=== PATIENT | male | born 1965 | race Caucasian/White ===

== ENCOUNTER 2017-11-28 00:17 | Inpatient (IN) ==
[2017-11-28 00:49] LABS: Basophils % 0.7 %; Eosinophils # 0.2 K/mcL (0.0-0.6); Eosinophils % 3.5 %; Hematocrit 43.2 % (37.5-50.1); Hemoglobin 14.8 g/dL (12.9-16.9); Immature Granulocytes % 0.2 % (0-4); Lymphocytes # 1.6 K/mcL (0.6-4.6); Lymphocytes % 37.3 %; Mean Corpuscular HGB Conc 34.3 g/dL (31.6-35.5); Mean Corpuscular Hemoglobin 31.1 pg (28.0-33.3); Mean Corpuscular Volume 90.8 fL (83.0-100.0); Mean Platelet Volume 8.9 fL (9.4-12.4); Monocytes # 0.3 K/mcL (0.0-1.3); Monocytes % 6.6 %; Neutrophils # 2.2 K/mcL (1.6-8.9); Platelet Count 192 K/mcL (140-400); Red Blood Count 4.76 M/mcL (4.19-5.50); Red Cell Distribution Width 12.6 % (11.5-14.5); Segmented Neutrophils % 51.7 %
[2017-11-28 01:01] LABS: Bilirubin,Urine Negative (Negative); Blood,Urine Negative (Negative); Clarity,Urine Clear (Clear); Color,Urine Yellow (Yellow); Glucose,Urine (UA) Normal (Normal); Ketones,Urine Negative (Negative); Leukocyte Esterase,Urine Negative (Negative); Nitrite,Urine Negative (Negative); Protein,Urine Negative (Neg-Trace); Specific Gravity,Urine 1.021 (1.010-1.025); Urobilinogen,Urine Normal (Normal)
[2017-11-28 01:09] LABS: Amphetamine Screen,Urine Negative ng/mL (Cutoff=1000); Barbiturate Screen,Urine Negative ng/mL (Cutoff=200); Benzodiazepines Screen,Urine Negative ng/mL (Cutoff=200); Cannabinoid Screen,Urine Negative ng/mL (Cutoff = 50); Cocaine Screen,Urine Positive ng/mL (Cutoff= 300); Opiate Screen,Urine Negative ng/mL (Cutoff=300); Phencyclidine Screen,Urine Negative ng/mL (Cutoff=25)
--- NOTE | 2017-11-28 01:11 | Emergency Department Note ---
Overdose - [facility] Narrative Medical decision making narrative: 52-year-old male presents due to intentional ingestion with intent to harm. Case discussed with poison control. He was observed here without decompensation. Psychiatry evaluated the patient and accepted them to their service. - Lab Data Lab results reviewed: Yes I reviewed the patient's lab results. Result diagrams: 11/28/17 00:41 11/28/17 00:41 Lab Results 11/28/17 11/28/17 11/28/17 Range/Units 00:41 00:41 00:49 WBC 4.2 L (4.3-11.1) K/mcL RBC 4.76 (4.19-5.50) M/mcL Hgb 14.8 (12.9-16.9) g/dL Hct 43.2 (37.5-50.1) % MCV 90.8 (83.0-100.0) fL MCH 31.1 (28.0-33.3) pg MCHC 34.3 (31.6-35.5) g/dL RDW 12.6 (11.5-14.5) % Plt Count 192 (140-400) K/mcL MPV 8.9 L (9.4-12.4) fL Immature Gran % 0.2 (0-4) % Seg Neutrophils % 51.7 % Lymphocytes % 37.3 % Monocytes % 6.6 % Eosinophils % 3.5 % Basophils % 0.7 % Neutrophils # 2.2 (1.6-8.9) K/mcL Lymphocytes # 1.6 (0.6-4.6) K/mcL Monocytes # 0.3 (0.0-1.3) K/mcL Eosinophils # 0.2 (0.0-0.6) K/mcL Basophils # 0.0 (0.0-0.2) K/mcL Sodium 140 (136-145) mEq/L Potassium 3.4 L (3.5-5.1) mEq/L Chloride 108 H (98-107) mEq/L Carbon Dioxide 22 L (23-29) mEq/L BUN 15 (6-20) mg/dL Creatinine 0.92 (0.70-1.30) mg/dL Est GFR ( Amer) > 60 (> 60) Est GFR (Non-Af Amer) > 60 (> 60) BUN/Creatinine Ratio 16 (6-26) Glucose 113 H (70-105) mg/dL Calculated Osmolality 292 (280-300) Calcium 8.7 (8.6-10.3) mg/dL TSH 5.432 (0.340-5.600) mcIU/mL Urine Color Yellow (Yellow) Urine Clarity Clear (Clear) Urine pH 6.0 (5.0-8.0) pH Units Ur Specific [place] 1.021 (1.010-1.025) Urine Protein Negative (Neg-Trace) mg/dL Urine Glucose (UA) Normal (Normal) mg/dL Urine Ketones Negative (Negative) mg/dL Urine Blood Negative (Negative) Urine Nitrite Negative (Negative) Urine Bilirubin Negative (Negative) Urine Urobilinogen Normal (Normal) mg/dL Ur Leukocyte Esterase Negative (Negative) Salicylates < 2.5 L (15.0-30.0) mg/dL Urine Opiates Screen (Mnasnr=260) ng/mL Acetaminophen < 10 L (10-20) mcg/mL Ur Barbiturates Screen (Lpywkz=641) ng/mL Ur Phencyclidine Scrn (Cutoff=25) ng/mL Ur Amphetamines Screen (Vfmzpg=1031) ng/mL U Benzodiazepines Scrn (Aupkua=230) ng/mL Urine Cocaine Screen (Cutoff= 300) ng/mL U Marijuana (THC) Screen (Cutoff = 50) ng/mL Ur Drug Screen Interp Ethyl Alcohol 100 H (Less than 10) mg/dL 11/28/17 11/28/17 Range/Units 00:49 03:10 WBC (4.3-11.1) K/mcL RBC (4.19-5.50) M/mcL Hgb (12.9-16.9) g/dL Hct (37.5-50.1) % MCV (83.0-100.0) fL MCH (28.0-33.3) pg MCHC (31.6-35.5) g/dL RDW (11.5-14.5) % Plt Count (140-400) K/mcL MPV (9.4-12.4) fL Immature Gran % (0-4) % Seg Neutrophils % % Lymphocytes % % Monocytes % % Eosinophils % % Basophils % % Neutrophils # (1.6-8.9) K/mcL Lymphocytes # (0.6-4.6) K/mcL Monocytes # (0.0-1.3) K/mcL Eosinophils # (0.0-0.6) K/mcL Basophils # (0.0-0.2) K/mcL Sodium (136-145) mEq/L Potassium (3.5-5.1) mEq/L Chloride (98-107) mEq/L Carbon Dioxide (23-29) mEq/L BUN (6-20) mg/dL Creatinine (0.70-1.30) mg/dL Est GFR ( Amer) (> 60) Est GFR (Non-Af Amer) (> 60) BUN/Creatinine Ratio (6-26) Glucose (70-105) mg/dL Calculated Osmolality (280-300) Calcium (8.6-10.3) mg/dL TSH (0.340-5.600) mcIU/mL Urine Color (Yellow) Urine Clarity (Clear) Urine pH (5.0-8.0) pH Units Ur Specific [place] (1.010-1.025) Urine Protein (Neg-Trace) mg/dL Urine Glucose (UA) (Normal) mg/dL Urine Ketones (Negative) mg/dL Urine Blood (Negative) Urine Nitrite (Negative) Urine Bilirubin (Negative) Urine Urobilinogen (Normal) mg/dL Ur Leukocyte Esterase (Negative) Salicylates (15.0-30.0) mg/dL Urine Opiates Screen Negative (Zntuoc=065) ng/mL Acetaminophen (10-20) mcg/mL Ur Barbiturates Screen Negative (Hjcluh=157) ng/mL Ur Phencyclidine Scrn Negative (Cutoff=25) ng/mL Ur Amphetamines Screen Negative (Sklfwz=1270) ng/mL U Benzodiazepines Scrn Negative (Joxggn=123) ng/mL Urine Cocaine Screen Positive H (Cutoff= 300) ng/mL U Marijuana (THC) Screen Negative (Cutoff = 50) ng/mL Ur Drug Screen Interp See Below Ethyl Alcohol 53 H (Less than 10) mg/dL - EKG Data EKG attestation: Yes I reviewed and interpreted this EKG. EKG results narrative: EKG demonstrates sinus rhythm with rate of 86 bpm. Left axis deviation. Normal intervals. Normal heart progression. No gross ST elevations or depressions. No acute ischemic findings. Repeat EKG demonstrates sinus rhythm rate 84 beats or minute. Left axis deviation. Normal intervals. Normal R-wave progression. No gross ST elevations or depressions. No changes from prior EKG Overdose HPI - General Chief Complaint: ED Overdose Stated Complaint: Overdose Time Seen by Provider: 11/28/17 00:27 Source: patient Mode of arrival: private vehicle Limitations: no limitations Nursing Notes Reviewed: Yes Vital Signs Reviewed: Yes - History of Present Illness HPI Narrative: 52-year-old male history of anxiety on Seroquel presents to the ER due to intentional overdose. States around 11 PM he took 2025 mg Seroquel tablets. This was an attempt to end his life. He immediately demonstrate a remorse and drink vinegar trying to throw up. He did not have any emesis. He denies any coingestions. No prior history of self-injurious behavior. Upon arrival he has no complaints just demonstrating remorse and poor judgment. Reports significant life stressors currently. Pt Subjective Complaint: intentional overdose Onset (ago): hour(s) Time of Ingestion: 23:00 Intent: suicide attempt Treatments Prior to Arrival: none - Related Data Previous Rx's Medication Instructions Recorded HydrOXYzine Pamoate [Vistaril] 50 mg PO TID #30 capsule 04/29/16 Allergies Allergy/AdvReac Type Severity Reaction Status Date / Time No Known Allergies Allergy Verified 04/29/16 09:56 All systems ED: reviewed and negative except as stated. Psychiatric: Reports: anxiety, suicidal thoughts. Denies: depression, homicidal thoughts, auditory hallucinations, visual hallucinations Past Medical History - Past Medical History Attestation: Yes The following information was validated with the patient. Source: patient Medical history: Reports: hyperlipidemia Psychiatric history: Reports: anxiety - Social History Smoking Status: Never smoker Smokeless Tobacco Status: Yes Alcohol use: Reports: occasionally Drug use: Reports: cocaine, opiates Physical Exam - General Limitations: no limitations General appearance: alert, in no apparent distress - Head Head exam: atraumatic, normocephalic - Eye Eye exam: Present: normal appearance - ENT ENT exam: normal exam - Neck Neck exam: Present: normal inspection - Chest Chest inspection: Present: normal inspection, symmetric chest wall rise - Respiratory Respiratory exam: Present: normal lung sounds bilaterally - Cardiovascular Cardiovascular exam: Present: regular rate, normal rhythm, normal heart sounds - Abdominal Exam Abdominal exam: Present: soft, Non-Tender. Absent: tenderness - Extremities Exam Extremities exam: Present: normal inspection, full ROM - Expanded Upper Extremity Exam Shoulder exam: Present: normal inspection, full ROM Arm exam: Present: normal inspection, full ROM Elbow exam: Present: normal inspection, full ROM Forearm/Wrist exam: Present: normal inspection, full ROM Hand exam: Present: normal inspection, full ROM - Expanded Lower Extremity Exam Hip/Pelvis exam: Present: normal inspection, full ROM Upper leg exam: Present: normal inspection, full ROM Knee exam: Present: normal inspection, full ROM Lower leg exam: Present: normal inspection, full ROM Ankle exam: Present: normal inspection, full ROM Foot/toe exam: Present: normal inspection, full ROM Neurovascular/Tendon exam: Absent: motor deficit, sensory deficit - Neurological Exam Neurological exam: Present: alert, other (GCS 15. No focal deficits.) - Psychiatric Psychiatric exam: Present: depressed - Skin Skin exam: Present: warm, dry Course Course Narrative: Patient seen and examined. Plan to speak with poison control. Medical clearance and psychiatric evaluation. [place] slipped for suicide attempt. - Reevaluation(s) Reevaluation #1: Patient evaluated by psychiatry. Deemed him a candidate for inpatient management. - Consultations Consultation #1: I spoke with the poison control center concerning the patient's ingestion. They recommend a 4-6 hour observation timeframe. Vital Signs Temperature 97.5 F L 11/28/17 00:19 Pulse Rate 88 11/28/17 00:19 Respiratory Rate 16 11/28/17 00:19 Blood Pressure 150/88 11/28/17 00:19 O2 Sat by Pulse Oximetry 97 11/28/17 00:19 Temperature 97.5 F L 11/28/17 00:19 Pulse Rate 83 11/28/17 02:54 Respiratory Rate 14 11/28/17 02:54 Blood Pressure 102/73 11/28/17 02:54 O2 Sat by Pulse Oximetry 98 11/28/17 02:54 Oxygen Delivery Oxygen Delivery Room Air Disposition Clinical Impression: Suicide attempt, Alcohol use Drug ingestion Qualifiers: Encounter type: initial encounter Injury intent: intentional self-harm Qualified Code(s): T50.902A - Poisoning by unspecified drugs, medicaments and biological substances, intentional self-harm, initial encounter Disposition: Admitted As Inpatient Condition: Good
[2017-11-28 01:26] LABS: Acetaminophen < 10 mcg/mL (10-20); BUN/Creatinine Ratio 16 (6-26); Blood Urea Nitrogen 15 mg/dL (6-20); Calcium 8.7 mg/dL (8.6-10.3); Carbon Dioxide 22 mEq/L (23-29); Chloride 108 mEq/L (98-107); Ethanol 100 mg/dL (Less than 10); Glucose 113 mg/dL (70-105); Osmolality,Calculated 292 (280-300); Potassium 3.4 mEq/L (3.5-5.1); Salicylate < 2.5 mg/dL (15.0-30.0); Sodium 140 mEq/L (136-145); Thyroid Stimulating Hormone 5.432 mcIU/mL (0.340-5.600); eGFR For Non-African Americans > 60 (> 60)
[2017-11-28] MEDS ORDERED: *HR* Buprenorphine HCl 8 MG TAB.SUBL SL ONE (04:18)
--- NOTE | 2017-11-28 05:26 | Emergency Department Note ---
Disposition Clinical Impression: Suicide attempt, Alcohol use Drug ingestion Qualifiers: Encounter type: initial encounter Injury intent: intentional self-harm Qualified Code(s): T50.902A - Poisoning by unspecified drugs, medicaments and biological substances, intentional self-harm, initial encounter Disposition: Admitted As Inpatient Condition: Good General Adult HPI - General Chief complaint: ED Overdose Stated complaint: Overdose Time Seen by Provider: 11/28/17 00:27 Source: patient Mode of arrival: private vehicle Limitations: no limitations Nursing Notes Reviewed: Yes Vital Signs Reviewed: Yes - History of Present Illness Pain Scale: 0 - Related Data Home Medications Medication Instructions Recorded Confirmed Buprenorphine HCl/Naloxone HCl 1 each SL 11/28/17 [Suboxone 8 mg-2 mg Sl Film] Quetiapine Fumarate [Seroquel] 25 mg PO HS 11/28/17 11/28/17 Sertraline [Zoloft] 50 mg PO DAILY 11/28/17 11/28/17 Allergies Allergy/AdvReac Type Severity Reaction Status Date / Time No Known Allergies Allergy Verified 04/29/16 09:56 Psychiatric: Reports: anxiety, suicidal thoughts. Denies: depression, homicidal thoughts, auditory hallucinations, visual hallucinations Past Medical History - Past Medical History Medical history: Reports: hyperlipidemia Psychiatric history: Reports: anxiety - Social History Smoking Status: Never smoker Smokeless Tobacco Status: Yes Alcohol use: Reports: occasionally Drug use: Reports: cocaine, opiates Physical Exam - General Limitations: no limitations General appearance: alert, in no apparent distress Course Vital Signs Temperature 97.5 F L 11/28/17 00:19 Pulse Rate 88 11/28/17 00:19 Respiratory Rate 16 11/28/17 00:19 Blood Pressure 150/88 11/28/17 00:19 O2 Sat by Pulse Oximetry 97 11/28/17 00:19 Temperature 98.5 F 11/28/17 09:00 Pulse Rate 63 11/28/17 09:00 Respiratory Rate 16 11/28/17 09:00 Blood Pressure 114/72 11/28/17 09:00 O2 Sat by Pulse Oximetry 98 11/28/17 02:54 Oxygen Delivery Oxygen Delivery Room Air Medical Decision Making - Medical Records Medical records reviewed: Yes I reviewed the patient's medical records. - Lab Data Lab results reviewed: Yes I reviewed the patient's lab results. Result diagrams: 11/28/17 00:41 11/28/17 00:41 Lab Results 11/28/17 11/28/17 11/28/17 Range/Units 00:41 00:41 00:49 WBC 4.2 L (4.3-11.1) K/mcL RBC 4.76 (4.19-5.50) M/mcL Hgb 14.8 (12.9-16.9) g/dL Hct 43.2 (37.5-50.1) % MCV 90.8 (83.0-100.0) fL MCH 31.1 (28.0-33.3) pg MCHC 34.3 (31.6-35.5) g/dL RDW 12.6 (11.5-14.5) % Plt Count 192 (140-400) K/mcL MPV 8.9 L (9.4-12.4) fL Immature Gran % 0.2 (0-4) % Seg Neutrophils % 51.7 % Lymphocytes % 37.3 % Monocytes % 6.6 % Eosinophils % 3.5 % Basophils % 0.7 % Neutrophils # 2.2 (1.6-8.9) K/mcL Lymphocytes # 1.6 (0.6-4.6) K/mcL Monocytes # 0.3 (0.0-1.3) K/mcL Eosinophils # 0.2 (0.0-0.6) K/mcL Basophils # 0.0 (0.0-0.2) K/mcL Sodium 140 (136-145) mEq/L Potassium 3.4 L (3.5-5.1) mEq/L Chloride 108 H (98-107) mEq/L Carbon Dioxide 22 L (23-29) mEq/L BUN 15 (6-20) mg/dL Creatinine 0.92 (0.70-1.30) mg/dL Est GFR ( Amer) > 60 (> 60) Est GFR (Non-Af Amer) > 60 (> 60) BUN/Creatinine Ratio 16 (6-26) Glucose 113 H (70-105) mg/dL Calculated Osmolality 292 (280-300) Calcium 8.7 (8.6-10.3) mg/dL TSH 5.432 (0.340-5.600) mcIU/mL Urine Color Yellow (Yellow) Urine Clarity Clear (Clear) Urine pH 6.0 (5.0-8.0) pH Units Ur Specific [place] 1.021 (1.010-1.025) Urine Protein Negative (Neg-Trace) mg/dL Urine Glucose (UA) Normal (Normal) mg/dL Urine Ketones Negative (Negative) mg/dL Urine Blood Negative (Negative) Urine Nitrite Negative (Negative) Urine Bilirubin Negative (Negative) Urine Urobilinogen Normal (Normal) mg/dL Ur Leukocyte Esterase Negative (Negative) Salicylates < 2.5 L (15.0-30.0) mg/dL Urine Opiates Screen (Skusul=769) ng/mL Acetaminophen < 10 L (10-20) mcg/mL Ur Barbiturates Screen (Pguhig=422) ng/mL Ur Phencyclidine Scrn (Cutoff=25) ng/mL Ur Amphetamines Screen (Jolwya=0343) ng/mL U Benzodiazepines Scrn (Sxvqgo=763) ng/mL Urine Cocaine Screen (Cutoff= 300) ng/mL U Marijuana (THC) Screen (Cutoff = 50) ng/mL Ur Drug Screen Interp Ethyl Alcohol 100 H (Less than 10) mg/dL 11/28/17 11/28/17 Range/Units 00:49 03:10 WBC (4.3-11.1) K/mcL RBC (4.19-5.50) M/mcL Hgb (12.9-16.9) g/dL Hct (37.5-50.1) % MCV (83.0-100.0) fL MCH (28.0-33.3) pg MCHC (31.6-35.5) g/dL RDW (11.5-14.5) % Plt Count (140-400) K/mcL MPV (9.4-12.4) fL Immature Gran % (0-4) % Seg Neutrophils % % Lymphocytes % % Monocytes % % Eosinophils % % Basophils % % Neutrophils # (1.6-8.9) K/mcL Lymphocytes # (0.6-4.6) K/mcL Monocytes # (0.0-1.3) K/mcL Eosinophils # (0.0-0.6) K/mcL Basophils # (0.0-0.2) K/mcL Sodium (136-145) mEq/L Potassium (3.5-5.1) mEq/L Chloride (98-107) mEq/L Carbon Dioxide (23-29) mEq/L BUN (6-20) mg/dL Creatinine (0.70-1.30) mg/dL Est GFR ( Amer) (> 60) Est GFR (Non-Af Amer) (> 60) BUN/Creatinine Ratio (6-26) Glucose (70-105) mg/dL Calculated Osmolality (280-300) Calcium (8.6-10.3) mg/dL TSH (0.340-5.600) mcIU/mL Urine Color (Yellow) Urine Clarity (Clear) Urine pH (5.0-8.0) pH Units Ur Specific [place] (1.010-1.025) Urine Protein (Neg-Trace) mg/dL Urine Glucose (UA) (Normal) mg/dL Urine Ketones (Negative) mg/dL Urine Blood (Negative) Urine Nitrite (Negative) Urine Bilirubin (Negative) Urine Urobilinogen (Normal) mg/dL Ur Leukocyte Esterase (Negative) Salicylates (15.0-30.0) mg/dL Urine Opiates Screen Negative (Zaogft=338) ng/mL Acetaminophen (10-20) mcg/mL Ur Barbiturates Screen Negative (Oadcxm=063) ng/mL Ur Phencyclidine Scrn Negative (Cutoff=25) ng/mL Ur Amphetamines Screen Negative (Bqaexk=1168) ng/mL U Benzodiazepines Scrn Negative (Fggyfu=106) ng/mL Urine Cocaine Screen Positive H (Cutoff= 300) ng/mL U Marijuana (THC) Screen Negative (Cutoff = 50) ng/mL Ur Drug Screen Interp See Below Ethyl Alcohol 53 H (Less than 10) mg/dL - EKG Data EKG #1 EKG attestation: Yes I reviewed and interpreted this EKG. EKG results narrative: Initial EKG shows a sinus rhythm with ventricular rate of 86. No acute ST segment elevation or depression. No arrhythmia or ectopy. IN interval 156. QRS duration 104. QT 391. QTC 434. EKG #2 EKG attestation: Yes I reviewed and interpreted this EKG. EKG results narrative: Repeat EKG shows a sinus rhythm with ventricular rate of 84. No acute ST segment elevation or depression. No arrhythmia or ectopy. IN interval 175. QRS duration 108. QTC 396. QTC 437. Critical Care Time Critical Care Time: Yes Total Critical Care Time: 40 Attestation: Critical care performed: Time is exclusive of separately billable procedures. Time includes: direct patient care, patient reassessment, coordination of patient care, interpretation of data (laboratory data, radiology data, and respiratory data), review of patient's medical records, medical consultation and documentation of patient care. Procedures included in critical care time: Procedures excluded from critical care time: Attestation Statement - Attestation Attestation: I, Terrence Pang MD, personally evaluated this patient and discussed their management with the resident physician. I reviewed the resident's note and agree with the documented findings, medical decision making, and plan of care. 52-year-old male presents to the emergency department after an intentional ingestion of approximately 20 or more of his Seroquel tablets. Patient then drank some vinegar and some salad dressing trying to make himself vomit but with no success. He admits that this was a suicide attempt. He has no specific complaints at present. No abdominal pain. No chest pain or shortness of breath. On examination patient is a well-developed well-nourished well-appearing male in no acute distress. He is alert and oriented 3. There is no cyanosis or diaphoresis. Breath sounds are clear and equal bilaterally. Heart regular rate and rhythm. Abdomen soft and nontender with normal bowel sounds. Labs reviewed. After repeat alcohol level patient was medically cleared for psychiatric evaluation. Poison control was consulted regarding the ingestion and recommended at least 4 hours observation for medical clearance. [address] psychiatry department was consulted and evaluated the patient in the emergency department and after evaluation patient is being admitted to the [address] psychiatric unit.
[2017-11-28] MEDS ORDERED: Mag Hydrox/Al Hydrox/Simeth 30 ML UDC PO PRN (05:45)
[2017-11-28] MEDS ORDERED: *HR* LORazepam 1 MG TABLET PO PRN (05:45)
[2017-11-28] MEDS ORDERED: Ibuprofen 400 MG TABLET PO PRN (05:45)
[2017-11-28] MEDS ORDERED: traZODone 50 MG TABLET PO PRN (05:45)
[2017-11-28] MEDS ORDERED: hydrOXYzine pamoate 25 MG CAPSULE PO PRN (05:45)
[2017-11-28] MEDS ORDERED: *HR* LORazepam 2 MG/ML VIAL IM PRN (05:45)
[2017-11-28] MEDS ORDERED: MOM Conc 10 ML UD.LIQ PO PRN (05:45)
[2017-11-28] MEDS ORDERED: Haloperidol Lactate 5 MG/ML VIAL IM PRN (05:45)
--- NOTE | 2017-11-28 12:06 | Psychiatry History & Physical ---
Date of Encounter: 11/28/17 Time of Encounter: 11:44 History of Present Illness Patient Stated Chief Complaint: overdose Medicare Admission Attestation: For traditional Medicare patients the provided hospital inpatient services are reasonable and necessary and in the case of services not specified as inpatient -only under 42 CFR 419.22 (n), that they are appropriately provided as inpatient services in accordance 42 CFR 412.3. For Critical Access Hospital the patient may reasonably be expected to be discharged or transferred to a hospital within 96 hours after admission to the Critical Access Hospital. Admitted From: Home Plans for Post Hospital Care: Home History of Present Illness: Mr. Durham is a 52 year old male who was admitted following an overdose of his Seroquel. Client has multiple stressors. Recently , fight with girlfriend, using Cocaine, living with father (who has Supranuclear Palsy) because client is only one who can physically lift him when he falls. Father's treats him badly, client recently lost his job and he has no money. States his Seroquel overdose was impulsive. Immediately regretted it and tried to throw up but couldn't. Started to panic. States he is depressed and anxious every day but denies he has ever been suicidal before. Claims he would never do something like this again. Does not believe in suicide and feels embarrassed by what he did. Wants discharged as soon as possible. Sees a counselor through his Suboxone clinic but otherwise not linked with services. PCP has been prescribing Zoloft and Seroquel. Zoloft upsets his stomach so he has not been taking it consistently. Seroquel helps him sleep. Discussed taking small doses of Seroquel during the daytime to help with anxiety. Client also agreeable to changing Zoloft to something different. Has tried Buspar and Vistaril without success. Past Med Surg Social Fam HX - Past Medical History Medical history: hyperlipidemia - Past Psychiatric History Psychiatric history: Reports: anxiety, depression Family psychiatric history: Unknown Family History of Suicide: Unknown - Social History Smoking Status: Never smoker Smokeless Tobacco Status: Yes Alcohol use: occasionally Drug use: cocaine, opiates Medications & Allergies Quetiapine Fumarate [Seroquel] 25 mg PO HS 11/28/17 [History] Sertraline [Zoloft] 50 mg PO DAILY 11/28/17 [History] 3 Allergy/AdvReac Type Severity Reaction Status Date / Time No Known Allergies Allergy Verified 04/29/16 09:56 Review of Systems Constitutional: Denies: fever, chills, weakness, weight change Eyes: Denies: eye pain, vision change Ears, Nose, Throat: Denies: ear pain, throat pain, dental pain, hearing loss, congestion Cardiovascular: Denies: chest pain, palpitations, dyspnea on exertion Respiratory: Denies: cough, dyspnea, wheezes Gastrointestinal: Denies: abdominal pain, nausea, vomiting, diarrhea, constipation Genitourinary male: Denies: urgency, dysuria, frequency, genital lesions Musculoskeletal: Denies: joint swelling, joint pain Integumentary: Denies: rash, lesions, pruritus Neurological: Denies: headache, weakness, numbness, memory loss Endocrine: Denies: fatigue, heat or cold intolerance Hematologic/Lymphatic: Denies: easy bruising, lymphadenopathy Allergic/Immunologic: Denies: urticaria, itchy eyes Exam - HEENT Head exam IM: Present: atraumatic Eye exam IM: Present: EOMI, normal appearance, PERRL ENT exam IM: Present: normal exam - Neurological Neurological exam: Present: CN II-XII intact - Respiratory Respiratory exam IM: Present: CTAB - GI/Abdominal GI/Abdominal exam IM: Present: normal bowel sounds, soft. Absent: tenderness - Extremities Extremities exam IM: Present: full ROM - Skin Skin exam IM: Present: dry, warm - Constitutional Vitals: Temp Pulse Resp BP Pulse Ox 98.5 F 63 16 114/72 98 11/28/17 09:00 11/28/17 09:00 11/28/17 09:00 11/28/17 09:00 11/28/17 02:54 General appearance: age & developmentally appropriate, well-groomed, well- nourished - Musculoskeletal Gait: normal Station: relaxed Strength & Tone: normal for patient - Psychiatric Patient Orientation: Yes Person, Yes Time, Yes Place Level of alertness: Alert Behavior: calm, cooperative Psychomotor activity: Normal Eye Contact: Maintains Eye Contact Mood Description: Depressed, Anxious Affect description: congruent with mood Speech Volume: Normal Speech pattern: normal rate, normal rhythm, normal tone, fluent, spontaneous Language & Vocabulary: consistent with education Thought Process: Linear Thought Content: No Suicidal ideation, No Homicidal ideation, No Overt delusions Perceptual Disturbances: No Auditory hallucinations, No Visual hallucinations Attention Span Ability: Capable of Focused Attention Memory Description: Grossly Intact Patient Reliability: Reliable Historian Fund of knowledge: Yes abstraction ability, Yes average, Yes aware of current events Intelligence Estimate: Average Judgment: Limited Insight: Partial Results - Labs Labs: Laboratory Last Values WBC 4.2 K/mcL (4.3-11.1) L 08 00:41 RBC 4.76 M/mcL (4.19-5.50) 11/28/17 00:41 Hgb 14.8 g/dL (12.9-16.9) 11/28/17 00:41 Hct 43.2 % (37.5-50.1) 11/28/17 00:41 MCV 90.8 fL (83.0-100.0) 11/28/17 00:41 MCH 31.1 pg (28.0-33.3) 11/28/17 00:41 MCHC 34.3 g/dL (31.6-35.5) 11/28/17 00:41 RDW 12.6 % (11.5-14.5) 11/28/17 00:41 Plt Count 192 K/mcL (140-400) 11/28/17 00:41 MPV 8.9 fL (9.4-12.4) L 11/28/17 00:41 Immature Gran % 0.2 % (0-4) 11/28/17 00:41 Seg Neutrophils % 51.7 % 11/28/17 00:41 Lymphocytes % 37.3 % 11/28/17 00:41 Monocytes % 6.6 % 11/28/17 00:41 Eosinophils % 3.5 % 11/28/17 00:41 Basophils % 0.7 % 11/28/17 00:41 Neutrophils # 2.2 K/mcL (1.6-8.9) 11/28/17 00:41 Lymphocytes # 1.6 K/mcL (0.6-4.6) 11/28/17 00:41 Monocytes # 0.3 K/mcL (0.0-1.3) 11/28/17 00:41 Eosinophils # 0.2 K/mcL (0.0-0.6) 11/28/17 00:41 Basophils # 0.0 K/mcL (0.0-0.2) 11/28/17 00:41 Sodium 140 mEq/L (136-145) 11/28/17 00:41 Potassium 3.4 mEq/L (3.5-5.1) L 11/28/17 00:41 Chloride 108 mEq/L (98-107) H 11/28/17 00:41 Carbon Dioxide 22 mEq/L (23-29) L 11/28/17 00:41 BUN 15 mg/dL (6-20) 11/28/17 00:41 Creatinine 0.92 mg/dL (0.70-1.30) 11/28/17 00:41 Est GFR ( Amer) > 60 (> 60) 11/28/17 00:41 Est GFR (Non-Af Amer) > 60 (> 60) 11/28/17 00:41 BUN/Creatinine Ratio 16 (6-26) 11/28/17 00:41 Glucose 113 mg/dL (70-105) H 11/28/17 00:41 Calculated Osmolality 292 (280-300) 11/28/17 00:41 Calcium 8.7 mg/dL (8.6-10.3) 11/28/17 00:41 TSH 5.432 mcIU/mL (0.340-5.600) 11/28/17 00:41 Urine Color Yellow (Yellow) 11/28/17 00:49 Urine Clarity Clear (Clear) 11/28/17 00:49 Urine pH 6.0 pH Units (5.0-8.0) 11/28/17 00:49 Ur Specific [place] 1.021 (1.010-1.025) 11/28/17 00:49 Urine Protein Negative mg/dL (Neg-Trace) 11/28/17 00:49 Urine Glucose (UA) Normal mg/dL (Normal) 11/28/17 00:49 Urine Ketones Negative mg/dL (Negative) 11/28/17 00:49 Urine Blood Negative (Negative) 11/28/17 00:49 Urine Nitrite Negative (Negative) 11/28/17 00:49 Urine Bilirubin Negative (Negative) 11/28/17 00:49 Urine Urobilinogen Normal mg/dL (Normal) 11/28/17 00:49 Ur Leukocyte Esterase Negative (Negative) 11/28/17 00:49 Salicylates < 2.5 mg/dL (15.0-30.0) L 11/28/17 00:41 Urine Opiates Screen Negative ng/mL (Kjigrs=015) 11/28/17 00:49 Acetaminophen < 10 mcg/mL (10-20) L 11/28/17 00:41 Ur Barbiturates Screen Negative ng/mL (Cuufyz=494) 11/28/17 00:49 Ur Phencyclidine Scrn Negative ng/mL (Cutoff=25) 11/28/17 00:49 Ur Amphetamines Screen Negative ng/mL (Hlkyxb=7389) 11/28/17 00:49 U Benzodiazepines Scrn Negative ng/mL (Yaovrd=571) 11/28/17 00:49 Urine Cocaine Screen Positive ng/mL (Cutoff= 300) H 11/28/17 00:49 U Marijuana (THC) Screen Negative ng/mL (Cutoff = 50) 11/28/17 00:49 Ur Drug Screen Interp See Below 11/28/17 00:49 Ethyl Alcohol 53 mg/dL (Less than 10) H 11/28/17 03:10 Assessment and Plan (1) Major depressive disorder Current visit: Yes Status: Acute Plan: Admit inpatient for safety and stabilization, Close observation, Suicide Precautions per unit protocol, Encourage participation in unit milieu, Group Therapy, Monitor sleep, Monitor appetite Risks, benefits, side effects, alternatives discussed w/pt: Yes Patient agreeable to treatment: Yes Plans for Post Hospital Care: Home Estimated Length of Stay (Days): 3 Qualifiers: Major depression recurrence: recurrent Active/Remission status: currently active Major depression episode severity: severe Psychotic features: without psychotic features Qualified Code(s): F33.2 - Major depressive disorder, recurrent severe without psychotic features (2) Generalized anxiety disorder Current visit: Yes Status: Acute Plan: Admit inpatient for safety and stabilization, Close observation, Suicide Precautions per unit protocol, Encourage participation in unit milieu, Group Therapy, Monitor sleep, Monitor appetite Risks, benefits, side effects, alternatives discussed w/pt: Yes Patient agreeable to treatment: Yes Plans for Post Hospital Care: Home Estimated Length of Stay (Days): 3
[2017-11-28] MEDS: Venlafaxine XR (24 HR) 37.5 MG CAP.ER.24H PO SCH (13:10)
[2017-11-28] MEDS ORDERED: NALOXONE PO ONE (21:00)
[2017-11-28] MEDS ORDERED: BUPRENORPHINE PO ONE (21:00)
[2017-11-29] MEDS: Venlafaxine XR (24 HR) 37.5 MG CAP.ER.24H PO SCH (08:44)
--- NOTE | 2017-11-29 09:05 | Electrocardiograph Report ---
[place] [id number] Test Date: 2017-11-28 Pat Name: Hunter Durham Department: 103 Room: 1A24 Gender: M Intelligence Chief: PARTH : 1965 Requested By: Zac Stapleton Order Number: [id number] Reading MD: Baljeet Grider Measurements Intervals [place] Rate: 86 P: 70 VT: 156 QRS: -27 QRSD: 104 T: 45 QT: 391 QTc: 434 Interpretive Statements SINUS RHYTHM BORDERLINE LEFT AXIS DEVIATION [QRS AXIS < -20] Electronically Signed On 11-29-2017 9:03:36 EDT by Baljeet Grider
--- NOTE | 2017-11-29 09:06 | Electrocardiograph Report ---
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
--- NOTE | 2017-11-29 11:16 | Psychiatry Progress Note ---
Date of Encounter: 11/29/17 Time of Encounter: 10:40 Subjective Interval history: Patient seen today , case d/w treatment team , patient was admitted for OD on seroquel , first time meeting patient . he has multiple stress, he was laid off, takes care of his father , states he is not suicidal but admits being depress and anxiety is bad , i am nervous wreck , i have financial problem , father dying, he is also on suboxone 16 mg as per him and gets it daily from clinic , states i was addicted to opiates and has tried heroin , he has low back pain states i was on them for 7 years. he at present took last dose in ER . vitals stable at present. At present will get suboxone dose confirmation from the clinic. he was given seroquel again as it is only one that helps him sleep. will increase effexor xr to 75 mg. will start discharge planning , he gets his medication from his family physician , need to f/u with psychiatrist. Review of Systems Psychiatric: Reports: depression, anxiety, irritability, mood swings Results - Vital Signs Vital Signs: Temp Pulse Resp BP Pulse Ox 98.3 F 61 16 128/90 98 11/29/17 09:00 11/29/17 09:00 11/29/17 09:00 11/29/17 09:00 11/28/17 02:54 Assessment and Plan (1) Suicide attempt Current visit: Yes Status: Acute Plan: Continue hospitalization, Close observation, Suicide Precautions per unit protocol, Encourage participation in unit milieu, Group Therapy, Monitor appetite, Family/Supportive other meeting Risks, benefits, side effects, alternatives discussed w/pt: Yes Patient agreeable to treatment: Yes (2) Major depressive disorder Current visit: Yes Status: Acute Plan: Continue hospitalization, Close observation, Suicide Precautions per unit protocol, Encourage participation in unit milieu, Group Therapy, Monitor sleep, Monitor appetite, Family/Supportive other meeting Risks, benefits, side effects, alternatives discussed w/pt: Yes Patient agreeable to treatment: Yes Qualifiers: Major depression recurrence: recurrent Active/Remission status: currently active Major depression episode severity: severe Psychotic features: without psychotic features Qualified Code(s): F33.2 - Major depressive disorder, recurrent severe without psychotic features (3) Generalized anxiety disorder Current visit: Yes Status: Acute Plan: Continue hospitalization, Close observation, Suicide Precautions per unit protocol Risks, benefits, side effects, alternatives discussed w/pt: Yes Patient agreeable to treatment: Yes Consult Discharge Plan - Plan Referrals: [facility] [Other] Psychiatry Exam - Constitutional Vitals: Temp Pulse Resp BP Pulse Ox 98.3 F 61 16 128/90 98 11/29/17 09:00 11/29/17 09:00 11/29/17 09:00 11/29/17 09:00 11/28/17 02:54 General appearance: age & developmentally appropriate, average - Musculoskeletal Gait: normal Station: other Strength & Tone: normal for patient - Psychiatric Patient Orientation: Yes Person, Yes Time, Yes Place Level of alertness: Alert Behavior: cooperative, anxious Psychomotor activity: Normal Eye Contact: Maintains Eye Contact Mood Description: Depressed, Anxious Affect description: congruent with mood Speech Volume: Normal Speech pattern: excessive Language & Vocabulary: consistent with education Thought Process: Racing Attention Span Ability: Unable to Sustain Attention Memory Description: Grossly Intact Patient Reliability: Reliable Historian Fund of knowledge: Yes average Intelligence Estimate: Average Judgment: Limited Insight: Partial
[2017-11-29] MEDS: *HR* Buprenorphine HCl 8 MG TAB.SUBL SL SCH (17:13)
[2017-11-30] MEDS ORDERED: Venlafaxine XR (24 HR) 75 MG CAP.ER.24H PO SCH (09:00)
[2017-11-30] MEDS: *HR* Buprenorphine HCl 8 MG TAB.SUBL SL SCH (09:10)
[2017-11-30 09:28] VITALS: BP 139/96
--- NOTE | 2017-11-30 10:48 | Discharge Summary ---
Date of Encounter: 11/30/17 Time of Encounter: 10:30 Diagnosis - Discharge Diagnosis (1) Suicide attempt Status: Resolved Comments: patient not suicidal or homicidal at present. has support from his family. (2) Major depressive disorder Status: Acute Comments: patient showed improvement and started on medications, counselling and structure envirnment helped him to be back at baseline. Qualifiers: Major depression recurrence: recurrent Active/Remission status: currently active Major depression episode severity: severe Psychotic features: without psychotic features Qualified Code(s): F33.2 - Major depressive disorder, recurrent severe without psychotic features (3) Generalized anxiety disorder Status: Acute Medications - Discharge Medications Prescriptions: Quetiapine Fumarate [Seroquel] 25 mg PO HS #20 tablet Venlafaxine XR (24 HR) [Effexor XR] 75 mg PO DAILY #20 cap.er.24h Buprenorphine HCl/Naloxone HCl [Suboxone 8 mg-2 mg Sl Film] 1 each SL 11/28/17 [ History] Quetiapine Fumarate [Seroquel] 25 mg PO HS #20 tablet 11/30/17 [Rx] Venlafaxine XR (24 HR) [Effexor XR] 75 mg PO DAILY #20 cap.er.24h 11/30/17 [Rx] 3 Allergy/AdvReac Type Severity Reaction Status Date / Time No Known Allergies Allergy Verified 04/29/16 09:56 Provider Date of admission: 11/28/17 05:21 Primary care physician: PCP NONE Psychiatry Exam - Constitutional Vitals: Temp Pulse Resp BP Pulse Ox 98.1 F 61 18 139/96 98 11/30/17 09:00 11/30/17 09:00 11/30/17 09:00 11/30/17 09:00 11/28/17 02:54 General appearance: age & developmentally appropriate, well-groomed, well- nourished - Musculoskeletal Gait: normal Station: relaxed Strength & Tone: normal for patient - Psychiatric Patient Orientation: Yes Person, Yes Time, Yes Place Level of alertness: Alert Behavior: calm, cooperative Psychomotor activity: Normal Eye Contact: Maintains Eye Contact Mood Description: Euthymic/stable, Anxious Affect description: congruent with mood, full range Speech Volume: Normal Speech pattern: normal rate, normal rhythm, normal tone, fluent, spontaneous Language & Vocabulary: consistent with education Thought Process: Linear, Goal Oriented Thought Content: No Suicidal ideation, No Homicidal ideation, No Overt delusions Perceptual Disturbances: No Auditory hallucinations, No Visual hallucinations Attention Span Ability: Capable of Focused Attention Memory Description: Grossly Intact Patient Reliability: Reliable Historian Fund of knowledge: Yes abstraction ability, Yes aware of current events Intelligence Estimate: Average Judgment: Good Insight: Partial Hospital Course Hospital course: Mr. Durham is a 52 year old male who was admitted following an overdose of his Seroquel. Client has multiple stressors. Recently , fight with girlfriend, using Cocaine, living with father (who has Supranuclear Palsy) because client is only one who can physically lift him when he falls. Father's treats him badly, client recently lost his job and he has no money. States his Seroquel overdose was impulsive. Immediately regretted it and tried to throw up but couldn't. Started to panic. States he is depressed and anxious every day but denies he has ever been suicidal before. Claims he would never do something like this again. Does not believe in suicide and feels embarrassed by what he did. Wants discharged as soon as possible. Sees a counselor through his Suboxone clinic but otherwise not linked with services. PCP has been prescribing Zoloft and Seroquel. Zoloft upsets his stomach so he has not been taking it consistently. Seroquel helps him sleep. During course of hospitalization. Patient compliant with treatment plan , he was denying suicidal ideation since in patient states never did that and feel bad about it as his believes also do not agree with it, states he has been going thru lot of stress and used cocain and made that mistake, he denies using cocain regularly states rarely and is in suboxone clinic and wants to remain sober, he gained insight but did not wanted any out patient substance use referral , he was started on effexor as zoloft did not helped him , he was also given low dose seroquel and he denied any side effects, was also given 2 doses of subetex to avoid withdrawal as on suboxone. he at time of discharge denied suicidal/homicidal ideation , his Girl friend is supportive and he is optimistic about getting job, he is stable and not in danger to self/others, follow up appointments given. Time spent discussing smoking cessation with patient: 3 to 10 minutes Does patient wish to continue nicotine replacement upon disc: No (does not smoke ) - Time Spent with Patient Total time spent providing and/or coordinating discharge services: Greater than 30 minutes Assessment and Plan - Patient/Caregiver Discharge Instructions Activity: resume usual activities as tolerated Diet: regular diet - Follow up Plan Follow up with: [facility] [Other] - 12/01/17 (The above appointment is for continuation of Suboxone treatment and substance abuse counseling services.) [facility] [Outside] - 12/21/17 3:00 pm (The above appointment is with Denia Hanks, for psychiatric assessment and medication management. Please arrive 30 minutes prior to your appointment. Bring your photo ID and your insurance card.) Functional capacity at discharge: independent ambulation Overall status at discharge: patient is back to baseline Disposition: Home, Self-Care Quality - Multiple Antipsychotics Patient discharged on 2 or more antipsychotic medications: No Procedures - Procedures Procedures: Medication Management, Crisis Stabilization, Supportive Therapy, Group Therapy, Psychoeducational Therapy
== END 2017-11-30 11:33 | disposition home or self-care (01) | DRG 817 ==
LOC: EMEROO 00:17 → 1ANU 05:21 → SUATTDRO 05:21 → 1ANU 05:40
PROVIDERS: ADMIT Psychiatry & Neurology Psychiatry; ATTEND Psychiatry & Neurology Psychiatry